=== PATIENT | male | born 1990 | race Caucasian/White ===

== ENCOUNTER 2025-03-17 02:27 | Emergency (ER) | payer OTHER ==
[~2025-03-17] VITALS: Ht 198.1 cm; Wt 113.6 kg
[2025-03-17] MEDS ORDERED: ANBE20GE TOP (06:12)
[2025-03-17] MEDS ORDERED: GABA-1172 PO (06:17)
[2025-03-17 06:30] VITALS: BP 125/86; TEMP 97.2; O2SAT 99
== END 2025-03-17 06:31 | disposition home or self-care (01) ==
LOC: M ED 02:27
DX: L55.0 Sunburn of first degree (principal); F90.9 Attention-deficit hyperactivity disorder, unspecified type; Z88.0 Allergy status to penicillin; Z79.899 Other long term (current) drug therapy